=== PATIENT | male | born 1935 | race Caucasian/White ===

== ENCOUNTER → 2019-06-15 | Outpatient (CLI) | payer MEDICARE, OTHER ==
[~2019-06-15] MED LIST: ADULT LOW DOSE81 MG PO; AVODART; BENICAR40 MG PO; PRILOSEC 20 MG20 MG PO
[2019-06-15 10:49] LABS: CREATININE 1.1 mg/dL (0.6-1.3)
== END ==
LOC: M.LAB 10:00 → M.CT 11:00
DX: J40 Bronchitis, not specified as acute or chronic (principal); J18.9 Pneumonia, unspecified organism; R06.02 Shortness of breath